=== PATIENT | female | born 2000 | race Hispanic/Latino ===

== ENCOUNTER 2020-05-25 23:32 | Day surgery (SDC) | payer OTHER ==
[2020-05-25 23:50] VITALS: BMI 22.6
[2020-05-26] MEDS ORDERED: hydrALAZINE 20 MG/ML VIAL SLOW IVP PRN (00:13)
[2020-05-26 00:50] LABS: Bilirubin Neg (Negative); Blood, Urine 25 (Negative); Clarity Clear (Clear); Glucose, Urine (Dipstick) Normal (Negative); Ketone, Urine Negative (Negative); Leukocyte Negative (Negative); Nitrite Negative (Negative); Protein, Urine (Dipstick) Negative (Neg-Trace); Urobilinogen Normal mg/dL (Less than 2)
[2020-05-26 01:21] LABS: Urine Culture Reflex No No
[2020-05-26 01:22] LABS: Bacteria/HPF None Seen HPF (None Seen); RBC/HPF 0-3 HPF (0-3); Squamous Epithelial 0-3 HPF (0-3); WBC/HPF 0-3 HPF (0-3)
[2020-05-26] MEDS ORDERED: Butorphanol Tartrate 1 MG/ML VIAL SLOW IVP SCH (03:02)
== END 2020-05-26 06:44 | disposition home or self-care (01) ==
LOC: CSHLD/OP 23:32
PROVIDERS: ATTEND Obstetrics & Gynecology
DX: O47.03 False labor before 37 completed weeks of gestation, third trimester (principal); O99.891 Other specified diseases and conditions complicating pregnancy; N89.8 Other specified noninflammatory disorders of vagina; R35.0 Frequency of micturition; Z3A.35 35 weeks gestation of pregnancy
CPT/HCPCS: 81001; J0595

== ENCOUNTER 2020-06-06 13:50 | Outpatient (CLI) | payer OTHER ==
[2020-06-07 09:03] LABS: SARS-CoV-2 PCR by NAA Indeterminate (NotDetected)
== END 2020-06-06 13:51 | disposition home or self-care (01) ==
LOC: CSHLAB 13:50
PROVIDERS: ATTEND Family Medicine
DX: Z20.822 Contact with and (suspected) exposure to COVID-19 (principal)
CPT/HCPCS: 87635; U0003; U0005

== ENCOUNTER 2020-06-07 18:16 | Inpatient (IN) | payer MEDICAID, OTHER, SELFPAY ==
[2020-06-07] MEDS ORDERED: Ondansetron PF 4 MG/2 ML Vial IVP PRN (18:32)
[2020-06-07] MEDS ORDERED: Promethazine HCl 25 MG/ML VIAL IM PRN (18:32)
[2020-06-07] MEDS ORDERED: NS / Oxytocin 40 units/1000ml 1,000 ML IV PRN (18:32)
[2020-06-07] MEDS ORDERED: Lidocaine 1% (PF) 30 ML VIAL SC PRN (18:32)
[2020-06-07] MEDS ORDERED: hydrALAZINE 20 MG/ML VIAL SLOW IVP PRN (18:32)
[2020-06-07] MEDS: Lactated Ringer's 1,000 ML IV SCH (19:00)
[2020-06-07 19:14] LABS: Hemoglobin 11.1 g/dL (12.0-15.5); Mean Corpuscular HGB CONC 33.5 g/dL (32.0-36.0); Mean Corpuscular Hemoglobin 31.2 pg (27.0-33.0); Mean Platelet Volume 9.7 fl (7.4-10.4); Platelet Count 217 10x3/uL (150-450); RBC Distribution Width 13.5 % (11.5-14.5); Red Blood Cell (RBC) Count 3.56 10x6/uL (3.90-5.03); White Blood Cell (WBC) Count 12.8 10x3/uL (3.5-10.5)
[2020-06-07 19:17] VITALS: BMI 23.8
[2020-06-07 20:14] LABS: Hep B Surf Ag Non-Reactive S/CO (NonReactive); Syphilis Antibody Nonreactive (Nonreactive); Syphilis Antibody Index 0.06 S/CO (<1.00 Non-Reactive)
[2020-06-07] MEDS ORDERED: Misoprostol 100 MCG TAB VAG SCH (20:15)
[2020-06-07 23:02] LABS: HBSAg Index 0.75 S/CO (0-0.99)
[2020-06-08] MEDS ORDERED: Misoprostol 100 MCG TAB VAG SCH (02:30)
[2020-06-08] MEDS ORDERED: Butorphanol Tartrate 1 MG/ML VIAL SLOW IVP PRN (07:50)
[2020-06-08] MEDS ORDERED: Fentanyl 4 mcg/Bup 0.1% Cadd 100 ML ONE (08:26)
[2020-06-08] MEDS ORDERED: NS w/ Oxytocin 30 units 500 ML ONE ×2 (08:44→10:04)
[2020-06-08] MEDS: NS w/ Oxytocin 30 units 500 ML IVPB SCH ×2 (09:00→12:13)
[2020-06-08] MEDS ORDERED: Lanolin Ointment 7 GM TUBE TOP PRN (11:51)
[2020-06-08] MEDS ORDERED: diphenhydrAMINE 25 MG CAP PO PRN (11:51)
[2020-06-08] MEDS ORDERED: Preparation H Ointment 28 GM TUBE PR PRN (11:51)
[2020-06-08] MEDS ORDERED: Bisacodyl 10 MG SUPP PR PRN (11:51)
[2020-06-08] MEDS ORDERED: Adacel (T-DAP) 0.5 ML SYRINGE IM ONE (11:51)
[2020-06-08] MEDS ORDERED: Milk Of Magnesia 30 ML UDCUP PO PRN (11:51)
[2020-06-08] MEDS: Ibuprofen 800 MG TAB PO SCH ×2 (12:13→22:29)
[2020-06-08] MEDS ORDERED: NS w/ Oxytocin 30 units 500 ML IVPB SCH (12:15)
[2020-06-08 17:18] LABS: SARS-CoV-2 PCR by NAA Not Detected (NotDetected)
[2020-06-08] MEDS: Docusate Calcium (SURFAK) 240 MG CAP PO SCH (22:29)
[2020-06-08] MEDS: Ferrous Sulfate 325 MG TAB PO SCH (22:30)
[2020-06-09] MEDS: Docusate Calcium (SURFAK) 240 MG CAP PO SCH ×2 (01:36→09:31)
[2020-06-09] MEDS: Ibuprofen 800 MG TAB PO SCH ×3 (01:37→09:30)
[2020-06-09 07:50] VITALS: BP 95/55
[2020-06-09] MEDS ORDERED: Prenatal Vitamin 1 TAB PO SCH (09:00)
[2020-06-09] MEDS: Ferrous Sulfate 325 MG TAB PO SCH (09:31)
[2020-06-09] MEDS: Lactated Ringer's 1,000 ML IV SCH ×3 (09:33→15:17)
[2020-06-09 13:39] VITALS: TEMP 98
== END 2020-06-09 15:00 | disposition home or self-care (01) | DRG 807 ==
LOC: CSHLD/OP 18:16 → CSHLD 19:02 → CSHPP 06-08 15:39
PROVIDERS: ADMIT Emergency Medicine; ATTEND Emergency Medicine
PROC: 3E033VJ Introduction of Other Hormone into Peripheral Vein, Percutaneous Approach (ICD-10-PCS; 2020-06-07)
PROC: 10E0XZZ Delivery of Products of Conception, External Approach (ICD-10-PCS; principal; 2020-06-08)
DX: O36.5930 Maternal care for other known or suspected poor fetal growth, third trimester, not applicable or unspecified (principal); Z37.0 Single live birth; Z3A.37 37 weeks gestation of pregnancy; Z20.822 Contact with and (suspected) exposure to COVID-19; O99.02 Anemia complicating childbirth; D64.9 Anemia, unspecified; O13.4 Gestational [pregnancy-induced] hypertension without significant proteinuria, complicating childbirth; O14.04 Mild to moderate pre-eclampsia, complicating childbirth; O14.94 Unspecified pre-eclampsia, complicating childbirth; O26.893 Other specified pregnancy related conditions, third trimester; Z67.41 Type O blood, Rh negative; Z79.82 Long term (current) use of aspirin
CPT/HCPCS: 85027; 86780; 86850; 86870; 86900; 86901; 87340; 87635; J0595; J2590; U0003; U0005

== ENCOUNTER 2024-12-20 10:15 | Inpatient (IN) | payer MEDICAID, OTHER, SELFPAY ==
[2024-12-20] MEDS ORDERED: hydrALAZINE 20 MG/ML VIAL SLOW IVP PRN ×2 (10:21→17:05)
[2024-12-20] MEDS ORDERED: Methylergonovine 0.2 MG/ML VIAL IM PRN (10:21)
[2024-12-20] MEDS ORDERED: Diphenoxylate HCl/Atropine Tablet PO PRN (10:21)
[2024-12-20] MEDS ORDERED: Ondansetron PF 4 MG/2 ML Vial IVP PRN ×2 (10:21→17:05)
[2024-12-20] MEDS ORDERED: Tranexamic Acid 1,000 MG/10 ML VIAL IVP PRN (10:21)
[2024-12-20] MEDS ORDERED: Ibuprofen 800 MG TAB PO PRN (10:21)
[2024-12-20] MEDS ORDERED: Acetaminophen 500 MG TAB PO PRN (10:21)
[2024-12-20] MEDS ORDERED: HYDROcodone/Acetaminophen 5/325 mg Tablet PO PRN ×2 (10:21→17:05)
[2024-12-20] MEDS ORDERED: Lidocaine 1% (PF) 30 ML VIAL SC PRN (10:21)
[2024-12-20] MEDS ORDERED: Carboprost 250 MCG/ML AMP IM PRN (10:21)
[2024-12-20] MEDS ORDERED: Oxytocin 30 units/NS 500 ML 500 ML IV SCH (10:30)
[2024-12-20 10:56] LABS: Hematocrit 33.9 % (34.9-44.5); Hemoglobin 11.2 g/dL (12.0-15.5); Mean Corpuscular Hemoglobin 30.2 pg (27.0-33.0); Mean Corpuscular Volume 91.4 fL (81.6-98.3); Platelet Count 201 10x3/uL (150-450); Red Blood Cell (RBC) Count 3.71 10x6/uL (3.90-5.03); White Blood Cell (WBC) Count 11.34 10x3/uL (3.5-10.5)
[2024-12-20] MEDS: Oxytocin 30 units/NS 500 ML 500 ML IV SCH (10:59)
[2024-12-20 11:00] VITALS: BMI 31.5
[2024-12-20 11:35] LABS: Syphilis Antibody Index 0.06 S/CO (<1.00 Non-Reactive)
[2024-12-20 11:37] LABS: Hep B Surf Ag - L&D Non-Reactive S/CO (NonReactive)
[2024-12-20] MEDS ORDERED: diphenhydrAMINE 25 MG CAP PO PRN (17:05)
[2024-12-20] MEDS ORDERED: Milk Of Magnesia 30 ML UDCUP PO PRN (17:05)
[2024-12-20] MEDS ORDERED: Bisacodyl 10 MG SUPP PR PRN (17:05)
[2024-12-20] MEDS: Ferrous Sulfate 325 MG TAB PO SCH (19:25)
[2024-12-20] MEDS ORDERED: Boostrix 0.5 ML (Tdap) VIAL (>/=7 yrs of age) IM ONE (21:00)
[2024-12-20] MEDS: Ibuprofen 800 MG TAB PO SCH (21:11)
[2024-12-21] MEDS: Ferrous Sulfate 325 MG TAB PO SCH (08:08)
[2024-12-21 08:18] VITALS: TEMP 98.4
[2024-12-21 12:39] VITALS: BP 109/57
== END 2024-12-21 17:35 | disposition home or self-care (01) | DRG 807 ==
LOC: CSHLD 10:15 → OBSVTOIN 10:15 → CSHPP 16:20
PROVIDERS: ADMIT Family Medicine; ATTEND Family Medicine
DX: O80 Encounter for full-term uncomplicated delivery (principal); Z37.0 Single live birth; Z3A.38 38 weeks gestation of pregnancy
CPT/HCPCS: 85027; 85461; 86780; 86850; 86870; 86900; 86901; 87340; 90384; 96372; J0595; J2590; J7120